=== PATIENT | female | born 1990 | race Caucasian/White ===

== ENCOUNTER 2016-05-22 00:06 | Emergency (ER) | payer OTHER ==
[~2016-05-22] VITALS: Ht 160 cm; Wt 71.2 kg
[~2016-05-22 00:06] MED LIST: NAPROXEN500 MG PO
[2016-05-22 00:28] LABS: HEMATOCRIT 36.8 % (36.0-46.0); MCH 29.9 PG (29.0-34.0); MCHC 34.2 G/DL (30.0-36.0); MCV 87.2 FL (83-99); MEAN PLAT.VOLUME 8.8 uM^3 (9.5-12.4); PLATELET COUNT 269 K/uL (156-360); RBC DIS.WIDTH-CV 12.2 % (11.8-14.6); RBC DIS.WIDTH-SD 39.1 % (39-53); RED BLOOD COUNT 4.22 M/uL (3.80-5.20); WHITE BLOOD COUNT 14.1 K/uL (4.1-10.2)
[2016-05-22 00:40] LABS: CHLORIDE 105 mEq/L (99-109); POTASSIUM 3.7 mEq/L (3.7-5.4); SODIUM 138 mEq/L (136-147)
[2016-05-22 00:42] LABS: GLUCOSE 89 mg/dL (70-99)
[2016-05-22 00:44] LABS: ANION GAP 9 MEQ/L (2-14); TOTAL BILIRUBIN 0.3 mg/dL (0.0-1.0)
[2016-05-22 00:46] LABS: ALKALINE PHOSPHATASE 50 IU/L (3-129); GFR ESTIMATE (CALCULATED) > 59 mL/min/
[2016-05-22 00:47] LABS: UREA NITROGEN (BUN) 10 mg/dL (9-23)
[2016-05-22 01:05] LABS: ADD MIUA? NO; BILIRUBIN NEGATIVE; BLOOD NEGATIVE; COLOR STRAW ((YELLOW)); GLUCOSE (STRIP) NEGATIVE; KETONES NEGATIVE; LEUKOCYTES NEGATIVE; NITRITE NEGATIVE; PROTEIN (STRIP) NEGATIVE; UCUL ADDED? NO; UROBILINOGEN 0.2 MG/DL (0.2-1.0)
[2016-05-22 01:11] LABS: QUANTITATIVE HCG 196156.9 MIU/ML
[2016-05-22 01:40] LABS: LIPASE 35 U/L (1.0-51.0)
[2016-05-22] MEDS ORDERED: ZOFRAN ODT4 MG PO (03:35)
[2016-05-22 03:56] VITALS: BP 126/76
== END 2016-05-22 03:57 | disposition home or self-care (01) ==
LOC: EME 00:06 → EXP 00:06
DX: O99.89 Other specified diseases and conditions complicating pregnancy, childbirth and the puerperium (principal); R11.2 Nausea with vomiting, unspecified; R10.10 Upper abdominal pain, unspecified; Z3A.09 9 weeks gestation of pregnancy
CPT/HCPCS: 80053; 81003; 83690; 84702; 85027; 99281; 99284; J2405; J7030

== ENCOUNTER 2016-08-03 18:58 | Emergency (ER) | payer OTHER ==
[~2016-08-03] VITALS: Ht 160 cm; Wt 72.8 kg
[~2016-08-03 18:58] MED LIST changes: +ZOFRAN ODT4 MG PO
[2016-08-03 20:32] VITALS: BP 104/55
== END 2016-08-03 20:33 | disposition home or self-care (01) ==
LOC: EME 18:58
DX: O26.892 Other specified pregnancy related conditions, second trimester (principal); M79.661 Pain in right lower leg; Z3A.20 20 weeks gestation of pregnancy
CPT/HCPCS: 93971; 99281; 99284

== ENCOUNTER 2016-09-04 00:39 | Emergency (ER) | payer OTHER ==
[~2016-09-04] VITALS: Ht 160 cm; Wt 75.3 kg
[2016-09-04 00:43] VITALS: BP 125/89
[2016-09-04 00:45] VITALS: BP 125/89
[2016-09-04 01:18] LABS: ADD MIUA? YES; BILIRUBIN NEGATIVE; BLOOD NEGATIVE; COLOR STRAW ((YELLOW)); GLUCOSE (STRIP) NEGATIVE; KETONES NEGATIVE; LEUKOCYTES SMALL; NITRITE NEGATIVE; PROTEIN (STRIP) NEGATIVE; SPECIFIC GRAVITY 1.004 (1.000-1.030); UROBILINOGEN 0.2 MG/DL (0.2-1.0)
[2016-09-04 01:28] LABS: AMPHETAMINE NEGATIVE (500 ng/mL); BARBITURATES NEGATIVE (200 ng/mL); BENZODIAZEPINES NEGATIVE (150 ng/mL); COCAINE NEGATIVE (150 ng/mL); INTERNAL CONTROLS VALID? YES; METHADONE NEGATIVE (200 ng/mL); METHAMPHETAMINE NEGATIVE (500 ng/mL); OPIATES (MORPHINE) NEGATIVE (100 ng/mL); OXYCODONE NEGATIVE (100 ng/mL); PHENCYCLIDINE NEGATIVE (25 ng/mL); PROPOXYPHENE NEGATIVE (300 ng/mL); THC CANNABINOIDS NEGATIVE (50 ng/mL); TRICYCLIC ANTIDEPRESSANTS NEGATIVE (300 ng/mL)
[2016-09-04 01:43] LABS: BACTERIA 2+ /HPF; CASTS NONE SEEN /LPF; CRYSTALS NONE SEEN; EPITHELIAL CELLS 1+ /HPF; MUCUS NONE SEEN /LPF; RED BLOOD CELLS NONE SEEN /HPF (0-5); UCUL ADDED? NO; WHITE BLOOD CELLS 0-5 /HPF (0-5)
[2016-09-04 02:50] LABS: HEMATOCRIT 35.4 % (36.0-46.0); MCH 29.3 PG (29.0-34.0); MCHC 33.6 G/DL (30.0-36.0); MCV 87.2 FL (83-99); MEAN PLAT.VOLUME 9.3 uM^3 (9.5-12.4); PLATELET COUNT 248 K/uL (156-360); RBC DIS.WIDTH-CV 12.1 % (11.8-14.6); RBC DIS.WIDTH-SD 38.4 % (39-53); RED BLOOD COUNT 4.06 M/uL (3.80-5.20); WHITE BLOOD COUNT 14.8 K/uL (4.1-10.2)
[2016-09-04 03:01] LABS: CHLORIDE 107 mEq/L (99-109); POTASSIUM 3.4 mEq/L (3.7-5.4); SODIUM 137 mEq/L (136-147)
[2016-09-04 03:02] LABS: GLUCOSE 97 mg/dL (70-99)
[2016-09-04 03:04] LABS: ANION GAP 11 MEQ/L (2-14)
[2016-09-04 03:06] LABS: GFR ESTIMATE (CALCULATED) > 59 mL/min/
[2016-09-04 03:07] LABS: UREA NITROGEN (BUN) 5 mg/dL (9-23)
[2016-09-04 03:15] LABS: TROP-I INTERPRETATION NEGATIVE; TROPONIN-I < 0.01 ng/mL (0.0-0.30)
[2016-09-04 03:33] VITALS: BP 113/69
== END 2016-09-04 03:33 | disposition home or self-care (01) ==
LOC: EME 00:39 → LDRP-OP 00:39 → 2WEST 00:40 → EDSTATUS 02:05 → EME 03:33
PROVIDERS: Advanced Practice Midwife; Emergency Medicine
DX: O99.89 Other specified diseases and conditions complicating pregnancy, childbirth and the puerperium (principal); R07.89 Other chest pain; Z3A.24 24 weeks gestation of pregnancy
CPT/HCPCS: 59025; 80048; 81003; 84484; 85027; 93005; 99281; 99284

== ENCOUNTER → 2016-09-30 | Outpatient (CLI) | payer OTHER ==
[~2016-09-30] VITALS: Ht 160 cm; Wt 73.0 kg
[2016-09-30 16:10] VITALS: BP 117/61
== END | disposition home or self-care (01) ==
LOC: IVINF 15:30
DX: Z31.82 Encounter for Rh incompatibility status (principal); Z3A.28 28 weeks gestation of pregnancy
CPT/HCPCS: 96372

== ENCOUNTER 2016-12-15 06:53 | Inpatient (IN) | payer OTHER ==
[~2016-12-15] VITALS: Ht 160 cm; Wt 81.2 kg
[2016-12-15] VITALS (28 sets, daily range): BP systolic 95–139; BP diastolic 53–83
[2016-12-15 10:46] LABS: EOSINOPHIL (%) 0.1 % (0-5); HEMATOCRIT 33.2 % (36.0-46.0); IMMATURE GRANULOCYTE (%) 0.6 % (0.0-0.7); IMMATURE GRANULOCYTE COUNT 0.1 K/uL; INSTRUMENT ABS NEUTROPHIL CT 13.1 K/uL; LYMPHOCYTE COUNT 2.1 K/uL (1.0-2.8); MCH 28.5 PG (29.0-34.0); MCHC 33.4 G/DL (30.0-36.0); MCV 85.1 FL (83-99); MONOCYTE (%) 3.8 % (3-12); MONOCYTE COUNT 0.6 K/uL (0-0.8); NEUTROPHIL (%) 82.1 % (45-76); NEUTROPHIL COUNT 13.1 K/uL (1.8-6.4); PLATELET COUNT 242 K/uL (156-360); RBC DIS.WIDTH-CV 13.1 % (11.8-14.6)
[2016-12-16] VITALS (7 sets, daily range): BP systolic 100–121; BP diastolic 59–71
[2016-12-16 06:05] LABS: HEMATOCRIT 27.4 % (36.0-46.0); MCH 28.2 PG (29.0-34.0); MCHC 32.5 G/DL (30.0-36.0); MCV 86.7 FL (83-99); RBC DIS.WIDTH-CV 13.4 % (11.8-14.6); RBC DIS.WIDTH-SD 41.7 % (39-53); RED BLOOD COUNT 3.16 M/uL (3.80-5.20); WHITE BLOOD COUNT 15.4 K/uL (4.1-10.2)
[2016-12-16 06:39] LABS: BASOPHIL COUNT 0.1 K/uL (0-0.1); EOSINOPHIL (%) 0.1 % (0-5); IMMATURE GRANULOCYTE (%) 0.6 % (0.0-0.7); IMMATURE GRANULOCYTE COUNT 0.1 K/uL; LYMPHOCYTE COUNT 2.6 K/uL (1.0-2.8); MONOCYTE (%) 4.1 % (3-12); MONOCYTE COUNT 0.6 K/uL (0-0.8)
[2016-12-16 07:41] LABS: MEAN PLAT.VOLUME 10.9 uM^3 (9.5-12.4); PLAT.SUFFICIENCY ADEQUATE
[2016-12-16 07:44] LABS: PLATELET COUNT 169 K/uL (156-360)
[2016-12-17 03:12] VITALS: BP 110/64
[2016-12-17 07:49] VITALS: BP 112/71
[2016-12-17] MEDS ORDERED: CHROMAGEN,1 CAPSULE PO (10:32)
[2016-12-17] MEDS ORDERED: IBUPROFEN800 MG PO (10:32)
[2016-12-17] MEDS ORDERED: ENDOCET 5-3251 EACH PO (10:32)
[2016-12-17 11:21] VITALS: BP 112/68
[2016-12-17 15:46] VITALS: BP 99/56
[2016-12-17 19:00] VITALS: BP 128/73
[2016-12-17 23:00] VITALS: BP 125/65
[2016-12-18 08:17] VITALS: BP 108/67
[2016-12-18] MEDS ORDERED: BREAST PUMP MC (10:05)
== END 2016-12-18 14:06 | disposition home or self-care (01) | DRG 765 ==
LOC: LDRP-OP 06:53 → 2WEST 06:54 → LDRP-OP 01-22 05:01
PROVIDERS: Advanced Practice Midwife; Obstetrics & Gynecology
PROC: 3E0S3NZ Introduction of Analgesics, Hypnotics, Sedatives into Epidural Space, Percutaneous Approach (ICD-10-PCS; principal; 2016-12-15)
PROC: 10D00Z1 Extraction of Products of Conception, Low, Open Approach (ICD-10-PCS; principal; 2016-12-15)
PROC: 00HU33Z Insertion of Infusion Device into Spinal Canal, Percutaneous Approach (ICD-10-PCS; principal; 2016-12-15)
DX: O65.9 Obstructed labor due to maternal pelvic abnormality, unspecified (principal); Z37.0 Single live birth; O99.02 Anemia complicating childbirth; D62 Acute posthemorrhagic anemia; E66.3 Overweight; Z3A.39 39 weeks gestation of pregnancy; O62.1 Secondary uterine inertia; O75.2 Pyrexia during labor, not elsewhere classified; O76 Abnormality in fetal heart rate and rhythm complicating labor and delivery; G43.919 Migraine, unspecified, intractable, without status migrainosus; O36.0930 Maternal care for other rhesus isoimmunization, third trimester, not applicable or unspecified; Z68.26 Body mass index [BMI] 26.0-26.9, adult; O99.214 Obesity complicating childbirth
CPT/HCPCS: 85025; 88305; 90686; C1755; J0690; J1885; J2175; J2270; J2274; J2405; J3010; J7120